=== PATIENT | female | born 1965 | race Caucasian/White ===

== ENCOUNTER 2018-07-20 09:07 | Outpatient (CLI) | payer OTHER | END 2018-07-20 09:09 | disposition home or self-care (01) | LOC: SONOGRAMA 09:07 | DX: E04.1 Nontoxic single thyroid nodule (principal) ==

== ENCOUNTER 2019-06-11 08:57 | Outpatient (CLI) | payer OTHER | END 2019-06-11 12:01 | disposition home or self-care (01) | LOC: SONOGRAMA 08:57 | DX: E04.8 Other specified nontoxic goiter (principal) ==